=== PATIENT | male | born 1945 | race Caucasian/White ===

== ENCOUNTER 2024-03-18 17:12 | Observation (INO) | payer OTHER ==
[2024-03-18 17:33] LABS: Absolute Basophils 0.1 K/uL (0-0.5); Absolute Eosinophils 0.1 K/uL (0-0.5); Absolute Lymphocytes (CBC) 1.1 K/uL (0.7-4.9); Absolute Monocytes 1.2 K/uL (0.1-1.3); Absolute Neutrophil 7.5 K/uL (1.8-8.0); Basophils % 0.5 % (0-1.3); Eosinophils % 0.8 % (0-4.4); Hematocrit 34.3 % (39.6-49.0); Hemoglobin 11.8 g/dL (13.6-17.9); MCH 32.2 pg (27.0-35.0); MCHC 34.5 g/dL (32.0-36.0); MCV 93.2 fL (80-100); MPV 8.2 fL (7.6-11.3); Neutrophils % 75.7 % (41.7-73.7); Nucleated Red Blood Cells % 0.1 % (0-0); Platelets 228 thou/uL (152-406); RBC Red Blood Cell Count 3.68 M/uL (4.33-5.43); Red Cell Distribution Width 14.8 % (12.1-15.2)
[2024-03-18 17:54] LABS: Anion Gap 8.8 mEq/L (5.0-15.0); Magnesium 1.5 mg/dL (1.6-2.4); Potassium 3.8 mEq/L (3.5-5.1); Troponin High Sensitivity 5.3 pg/mL (<58.9)
--- NOTE | 2024-03-18 19:15 | EDPHYS ---
Physician Documentation [facility] Name: Clarence Albright Age: 78 yrs Sex: Male : 1945 Arrival Date: 03/18/2024 Time: 17:12 Bed 3 Private MD: ED Physician Willie Street HPI: 03/18 19:15 This 78 yrs old Male presents to ER via EMS with complaints of Blood Pressure Problem. ms3 19:15 78-year-old male with past medical history of diabetes, hypertension, hypothyroidism, ms3 hypercholesterolemia, congestive heart failure presents to the emergency department for generalized weakness. EMS was called to restaurant where patient was unable to stand. EMS obtained patient's blood pressure and found it to be 70/40. EMS notes patient was slow to respond and had retrograde amnesia at that time. 650 mL of normal saline was administered with improvement of patient's blood pressure. Patient is without complaints on arrival to the emergency department. Historical: - Allergies: 17:23 Acyclovir; ld1 - PMHx: 17:23 Diabetes mellitus; Hypertensive disorder; Hypothyroidism; ld1 17:24 Hypercholesterolemia; CHF; ld1 - PSHx: 17:23 Cardiac stent; ld1 - Immunization history:: Adult Immunizations up to date. - Infectious Disease History:: Denies. - Social history:: Smoking status: Patient denies any tobacco usage or history of. ROS: 19:15 Constitutional: Negative for fever, and chills. ms3 19:15 Cardiovascular: Negative for chest pain, and palpitations. Respiratory: Negative for shortness of breath, cough, wheezing, and pleuritic chest pain, Abdomen/GI: Negative for abdominal pain, nausea, vomiting, diarrhea, and constipation, 19:15 Neck: Positive for Neck pain, Exam: 19:04 ECG was reviewed by the Attending Physician. ms3 19:15 Constitutional: This is a well developed, well nourished patient who is awake, alert, ms3 and in no acute distress. Chest/axilla: Normal chest wall appearance and motion. Nontender with no deformity. Cardiovascular: Regular rate and rhythm with a normal S1 and S2. No gallops, murmurs, or rubs. Normal PMI, no JVD. No pulse deficits. Respiratory: Lungs have equal breath sounds bilaterally, clear to auscultation and percussion. No rales, rhonchi or wheezes noted. No increased work of breathing, no retractions or nasal flaring. Abdomen/GI: Soft, non-tender, with normal bowel sounds. No distension or tympany. No guarding or rebound. No evidence of tenderness throughout. Skin: Warm, dry with normal turgor. Normal color with no rashes, no lesions, and no evidence of cellulitis. Vital Signs: 17:16 BP 117 / 65; Pulse 70; Resp 18; Pulse Ox 100% on R/A; Weight 81.19 kg; ld1 17:20 BP 117 / 65; Pulse 70; Resp 28; Pulse Ox 100% on R/A; ld1 18:29 BP 132 / 72; Pulse 71; Resp 16; Pulse Ox 100% on R/A; ld1 18:56 BP 142 / 90; Pulse 73; Resp 12; Pulse Ox 100% on R/A; ld1 19:13 BP 131 / 77; Pulse 80; Resp 17; Pulse Ox 98% on R/A; kd3 20:27 BP 131 / 65; Pulse 82; Resp 17; Pulse Ox 95% ; vc1 MDM: 17:23 Patient medically screened. ms3 19:15 Differential Diagnosis Arrhythmia versus electrolyte abnormality versus orthostatic ms3 hypotension. Data reviewed: vital signs, nurses notes, lab test result(s), radiologic studies, and as a result, I will discharge patient. Consideration of Admission/Observation Patient was admitted/placed on observation. Management of patient was discussed with the following: Hospitalist: Dr. Shoemaker. Independent interpretation of the following test(s) in the Emergency Department X-Ray: My interpretation is Chest x-ray image reviewed by me shows cardiomegaly. satellite project site monitor: rate is 77 beats/min, Rhythm is normal sinus rhythm, regular, with no ectopy, Interpretation: normal rate, normal rhythm. Historians other than the Patient: EMS: [facility]. Counseling: I had a detailed discussion with the patient and/or guardian regarding the historical points, exam findings, and any diagnostic results supporting the discharge/admit diagnosis, lab results, radiology results, the need for further work-up and treatment in the hospital. ED course: Discussed necessity for admission with patient and his family. They understand and agree with plan. Patient has remained normotensive in the emergency department. However, unexplained low blood pressure without an increase in heart rate according to EMS. Will place patient in observation. 03/18 17:22 Order name: Basic Metabolic Panel; Complete Time: 17:57 ms3 03/18 17:22 Order name: CBC with Diff; Complete Time: 17:57 ms3 03/18 17:22 Order name: Magnesium; Complete Time: 17:57 ms3 03/18 17:22 Order name: NT PRO-BNP; Complete Time: 17:57 ms3 03/18 17:22 Order name: Troponin HS; Complete Time: 17:57 ms3 03/18 20:40 Order name: Urinalysis w/ reflexes EDMS 03/18 20:40 Order name: CBC with Automated Diff EDMS 03/18 20:40 Order name: CBC with Automated Diff EDMS 03/18 20:40 Order name: Comprehensive Metabolic Panel EDMS 03/18 20:40 Order name: Comprehensive Metabolic Panel EDMS 03/18 17:22 Order name: XRAY Chest (1 view); Complete Time: 19:57 ms3 03/18 17:22 Order name: EKG; Complete Time: 17:23 ms3 03/18 20:40 Order name: Physical Therapy Consult EDAR 03/18 17:22 Order name: Cardiac monitoring; Complete Time: 17:23 ms3 03/18 17:22 Order name: EKG - Nurse/Tech; Complete Time: 17:45 ms3 03/18 17:22 Order name: IV Saline Lock; Complete Time: 17:23 ms3 03/18 17:22 Order name: Labs collected and sent; Complete Time: 17:23 ms3 03/18 17:22 Order name: O2 Per Protocol; Complete Time: 17:23 ms3 03/18 17:22 Order name: O2 Sat Monitoring; Complete Time: 17:23 ms3 EC:04 Rate is 71 beats/min. Rhythm is regular. QRS [place] is Normal. [place] interval is prolonged. ms3 QRS interval is normal. Clinical impression: Normal ECG and with 1st degree AV block. Interpreted by me. Reviewed by me. Administered Medications: No medications were administered Disposition Summary: 03/18/24 19:14 Hospitalization Ordered Notes: Hospitalization Status: Observation ms3 Provider: Nito Shoemaker ms3 Location: Telemetry/MedSurg (observation) ms3 Condition: Stable ms3 Problem: new ms3 Symptoms: are resolved ms3 Bed/Room Type: Standard ms3 Room Assignment: 228(03/18/24 21:04) [facility] Diagnosis - Hypotension, unspecified ms3 - Weakness ms3 Forms: - Medication Reconciliation Form ms3 - SBAR form ms3 - Leadership Thank You Letter ms3 Signatures: Dispatcher [employer] Mart Alston RN RN jb4 Willie Street DO DO ms3 Stacey Street RN RN ld1 Maty Kam [facility] Corrections: (The following items were deleted from the chart) 20:46 19:14 ms3 jb4 21:04 20:46 [facility]
--- NOTE | 2024-03-18 19:15 | ER ---
Nurse's Notes [facility] Name: Clarence Albright Age: 78 yrs Sex: Male : 1945 Arrival Date: 03/18/2024 Time: 17:12 Bed 3 Private MD: Diagnosis: Hypotension, unspecified;Weakness Presentation: 03/18 17:20 Chief complaint: EMS states: toned out to [facility] for pt who was stumbling, weak, ld1 lethargic. Pt received anti inflammatory shot today at [facility]. EMS reports low BP upon arrival to restaurant of 70/40. Coronavirus screen: At this time, the client does not indicate any symptoms associated with coronavirus-19. Ebola Screen: No symptoms or risks identified at this time. Initial Sepsis Screen: Does the patient meet any 2 criteria? No. Patient's initial sepsis screen is negative. Does the patient have a suspected source of infection? No. Patient's initial sepsis screen is negative. Risk Assessment: Do you want to hurt yourself or someone else? Patient reports no desire to harm self or others. 17:20 Method Of Arrival: EMS: [facility] ld1 17:20 Acuity: PRESLEY 2 ld1 17:21 Onset of symptoms was March 18, 2024. ld1 17:23 Care prior to arrival: Medication(s) given: Normal saline infusion, 500 mL. ld1 Triage Assessment: 17:21 General: Appears in no apparent distress. comfortable, Behavior is calm, cooperative, ld1 appropriate for age. 17:22 Pain: Denies pain. EENT: No signs and/or symptoms were reported regarding the EENT ld1 system. Neuro: Level of Consciousness is awake, alert, obeys commands, Oriented to person, place, time, situation. Cardiovascular: Capillary refill < 3 seconds Patient's skin is warm and dry. Rhythm is sinus rhythm. Respiratory: Airway is patent Respiratory effort is even, unlabored. GI: Abdomen is round non-distended. : No signs and/or symptoms were reported regarding the genitourinary system. Derm: No signs and/or symptoms reported regarding the dermatologic system. Musculoskeletal: No signs and/or symptoms reported regarding the musculoskeletal system. Historical: - Allergies: 17:23 Acyclovir; ld1 - PMHx: 17:23 Diabetes mellitus; Hypertensive disorder; Hypothyroidism; ld1 17:24 Hypercholesterolemia; CHF; ld1 - PSHx: 17:23 Cardiac stent; ld1 - Immunization history:: Adult Immunizations up to date. - Infectious Disease History:: Denies. - Social history:: Smoking status: Patient denies any tobacco usage or history of. Screenin:14 [facility] ED Fall Risk Assessment (Adult) History of falling in the last 3 months, kd3 including since admission No falls in past 3 months (0 pts) Confusion or Disorientation No (0 pts) Intoxicated or Sedated No (0 pts) Impaired Gait No (0 pts) Mobility Assist Device Used No (0 pt) Altered Elimination No (0 pt) Score/Fall Risk Level 0 - 2 = Low Risk Oriented to surroundings. Abuse screen: Denies threats or abuse. Denies injuries from another. Nutritional screening: No deficits noted. Tuberculosis screening: No symptoms or risk factors identified. Assessment: 17:24 Reassessment: See triage assessment. ld1 18:29 Reassessment: Patient appears in no apparent distress at this time. No changes from ld1 previously documented assessment. Patient and/or family updated on plan of care and expected duration. Pain level reassessed. Patient is alert, oriented x 3, equal unlabored respirations, skin warm/dry/pink. 19:11 General: Pt called this Rn into the room to request a urinal. Pt also requested an kd3 update. Provider is at the bedside to update the patient and family. No further requests at this time. . 19:14 General: Appears in no apparent distress. Behavior is calm, cooperative. Neuro: Level kd3 of Consciousness is awake, alert, obeys commands, Oriented to person, place, time, situation. Cardiovascular: Patient's skin is warm and dry. Respiratory: Airway is patent Trachea midline Respiratory effort is even, unlabored, Respiratory pattern is regular, symmetrical. 20:27 Reassessment: Patient appears in no apparent distress at this time. No changes from vc1 previously documented assessment. Patient and/or family updated on plan of care and expected duration. Pain level reassessed. Patient is alert, oriented x 3, equal unlabored respirations, skin warm/dry/pink. Vital Signs: 17:16 BP 117 / 65; Pulse 70; Resp 18; Pulse Ox 100% on R/A; Weight 81.19 kg; ld1 17:20 BP 117 / 65; Pulse 70; Resp 28; Pulse Ox 100% on R/A; ld1 18:29 BP 132 / 72; Pulse 71; Resp 16; Pulse Ox 100% on R/A; ld1 18:56 BP 142 / 90; Pulse 73; Resp 12; Pulse Ox 100% on R/A; ld1 19:13 BP 131 / 77; Pulse 80; Resp 17; Pulse Ox 98% on R/A; kd3 20:27 BP 131 / 65; Pulse 82; Resp 17; Pulse Ox 95% ; vc1 ED Course: 17:16 Patient arrived in ED. ko1 17:16 Maintain EMS IV. Dressing intact. Good blood return noted. Site clean \T\ dry. Gauge \T\ ld 1 site: 20G RAC. 17:[address] DO is Attending Physician. ms3 17:[address], RN is Primary Nurse. ld1 17:21 Triage completed. ld1 17:22 Arm band placed on right wrist. ld1 18:22 XRAY Chest (1 view) In Process Unspecified. EDMS 19:14 Nito Shoemaker MD is Hospitalizing Provider. ms3 19:14 Patient has correct armband on for positive identification. Provided Education on: ED kd3 policy and procedures. . Administered Medications: No medications were administered Medication: 19:14 VIS not applicable for this client. kd3 Outcome: 19:14 Decision to Hospitalize by Provider. ms3 22:12 Patient left the ED. kd3 Signatures: Dispatcher [employer] EDMS Willie Street DO DO ms3 Stacey Street, LAWRENCE RN ld1 Aury Doty RN RN kd3 Lindsay Wayne RN RN vc1 Kathi Grigsby, LAWRENCE BRAVO ko1 Corrections: (The following items were deleted from the chart) 17:22 17:20 Chief complaint: EMS states: toned out to [employer] for pt who was stumbling, ld1 weak, lethargic. Pt received anti inflammatory shot today at [facility]. ld1 17:22 17:20 Chief complaint: EMS states: toned out to [employer] [place] [employer] for pt who was stumbling, ld1 weak, lethargic. Pt received anti inflammatory shot today at [facility]. EMS reports low BP upon arrival to restaurant ld1
--- NOTE | 2024-03-18 19:33 | RAD REPORT ---
EXAM DESCRIPTION: Grace Single View03/18/2024 6:20 pm CLINICAL HISTORY: hypotension, Left shoulder pain COMPARISON: No comparisons TECHNIQUE: Portable AP view of the chest. FINDINGS: Blunting of the left costophrenic angle, may suggest pleural thickening or small effusion. No pneumothorax. The cardiomediastinal contours are unremarkable. IMPRESSION: Blunting of the left costophrenic angle, may suggest pleural thickening or small effusio n.
--- NOTE | 2024-03-18 20:33 | P.HP ---
Certification for Inpatient Patient admitted to: Observation With expected LOS: <2 Midnights Practitioner: I am a practitioner with admitting privileges, knowledge of patient current condition, hospital course, and medical plan of care. Services: Services provided to patient in accordance with Admission requirements found in Title 42 Section 412.3 of the Code of Federal Regulations Patient History Date of Service: 03/18/24 Reason for admission: Dizziness and generalized weakness History of Present Illness: 78-year-old male with past medical history of diabetes, hypertension, hypothyroidism, hyperlipidemia, CAD status post cardiac stents, having neck pain and spasm and had an antiinflammatory shot and was prescribed medication tizanidine for muscle spasm at [facility] started having generalized weakness lethargy, stumbling. He went to dinner at a restaurant when he was had a presyncopal episode and EMS was called. Upon EMS arrival patient noted to have a blood pressure of 70/40 and was brought to ER. Patient denies any chest pain or shortness of breath. No nausea vomiting or diarrhea. No fever or chills. Denies any palpitation. Patient was assessed in the ER and was admitted for further management . Allergies No Known Allergies Allergy (Unverified 03/18/24 22:09) - Past Medical/Surgical History Past Medical History: Reviewed- Non-Contributory -: Hypertension, diabetes, CAD, hyperlipidemia, Past Surgical History: Reviewed- Non-Contributory -: Stents - Family History Family History: Reviewed- Non-Contributory - Social History Smoking Status: Never smoker Review of Systems 10-point ROS is otherwise unremarkable Physical Examination - Vital Signs Temperature: 97.8 F Blood Pressure: 108/48 Pulse: 78 Respirations: 18 Pulse Ox (%): 94 - Physical Exam General: Alert, In no apparent distress, Oriented x3 HEENT: Atraumatic, Normocephalic Neck: Supple, 2+ carotid pulse no bruit Respiratory: Clear to auscultation bilaterally, Normal air movement Cardiovascular: No edema, Normal pulses, Regular rate/rhythm, Normal S1 S2 Capillary refill: <2 Seconds Gastrointestinal: Soft and benign, Non-distended, W/out hepatosplenomegaly Musculoskeletal: No clubbing, No swelling Integumentary: No rashes, No breakdown Neurological: Normal speech, Normal strength at 5/5 x4 extr, Cranial nerves 3-12 intact, Normal reflexes 2+ Lymphatics: No axilla or inguinal lymphadenopathy - Studies Laboratory Data (last 24 hrs) 03/18/24 03/18/24 17:26 17:26 WBC 9.90 Hgb 11.8 L Hct 34.3 L Plt Count 228 Sodium 135 L Potassium 3.8 BUN 19 H Creatinine 1.16 Glucose 164 H Magnesium 1.5 L Assessment and Plan - Problems (Diagnosis) (1) Pre-syncope Current Visit: Yes Status: Acute Plan: Pre syncope Hypotension Resolved Possibly induced by medications Will hold tizanidine Gentle hydration Hyponatremia Acute renal insufficiency Dehydration Started on IV hydration Monitor renal Electrolytes monitor and replace accordingly Hypomagnesemia Replace Diabetes Insulin sliding scale Accu-Chek before every meal and at bedtime hyperlipidemia Continue statin Anemia of chronic disease Monitor H&H closely History of CAD status post stents Monitor closely on telemetry GI/DVT prophylaxis Advanced directive full code Discharge Plan: Home Plan to discharge in: 24 Hours - Advance Directives Does patient have a Living Will: No Does patient have a Durable POA for Healthcare: No - Code Status/Comfort Care Code Status: Full Code Time Spent Managing Pts Care (In Minutes): 48
[2024-03-18] MEDS ORDERED: ACETAMINOPHEN 325 MG TABLET PO PRN (20:34)
[2024-03-18] MEDS ORDERED: ONDANSETRON 4 MG/2 ML VIAL IV PRN (20:34)
[2024-03-18 22:10] VITALS: BMI 23.4
[2024-03-19 04:13] LABS: Absolute Basophils 0.1 K/uL (0-0.5); Absolute Eosinophils 0.1 K/uL (0-0.5); Absolute Lymphocytes (CBC) 1.6 K/uL (0.7-4.9); Absolute Monocytes 1.1 K/uL (0.1-1.3); Absolute Neutrophil 6.5 K/uL (1.8-8.0); Basophils % 0.6 % (0-1.3); Eosinophils % 1.4 % (0-4.4); Hematocrit 35.4 % (39.6-49.0); Hemoglobin 12.4 g/dL (13.6-17.9); Lymphocytes % 17.4 % (15.3-44.8); MCH 32.4 pg (27.0-35.0); MCHC 34.9 g/dL (32.0-36.0); MCV 92.6 fL (80-100); MPV 8.2 fL (7.6-11.3); Monocytes % 11.6 % (3.3-12.3); Nucleated Red Blood Cells % 0.1 % (0-0); Platelets 217 thou/uL (152-406); RBC Red Blood Cell Count 3.82 M/uL (4.33-5.43); Red Cell Distribution Width 14.8 % (12.1-15.2)
[2024-03-19 04:27] LABS: ALT/SGPT 17 U/L (16-61); Albumin 2.7 g/dL (3.4-5.0); Albumin/Globulin Ratio 0.8 (1.1-1.8); Alkaline Phosphatase 90 U/L (45-117); Anion Gap 6.4 mEq/L (5.0-15.0); BUN Blood Urea Nitrogen 18 mg/dL (7-18); Bicarbonate 29 mEq/L (21-32); Bilirubin Total 0.5 mg/dL (0.2-1.0); Globulin 3.2 g/dL (2.3-3.5); Glomerular Filtration Rate 66 ml/min (=/>90); Glucose Level 137 mg/dL (74-106); Potassium 3.4 mEq/L (3.5-5.1); Protein, Total 5.9 g/dL (6.4-8.2); Sodium Level 135 mEq/L (136-145)
[2024-03-19 04:36] LABS: AST/SGOT < 10 U/L (15-37)
[2024-03-19] MEDS: NA CHLORIDE 0.9% 1,000 ML IV SCH (04:49)
[2024-03-19] MEDS: POTASSIUM CL SA 10 MEQ TAB PO ONE (08:04)
--- NOTE | 2024-03-19 10:57 | P.DS ---
Admission Date: 03/18/24 Discharge Date: 03/19/24 Disposition: ROUTINE DISCHARGE Discharge Condition: FAIR Reason for Admission: Dizziness and generalized weakness - Problems (1) Transient hypotension Status: Acute (2) History of hypertension Status: Acute (3) Pre-syncope Status: Acute (4) Hyponatremia Status: Acute (5) Hypokalemia Status: Acute Hospital Course: 78-year-old male with past medical history of diabetes, hypertension, hypothyroidism, hyperlipidemia, CAD status post cardiac stents, having neck pain and spasm and had an intra-articular injection for pain and was prescribed medication tizanidine for muscle spasm at [facility]. Patient reported generalized weakness lethargy, stumbling and low blood pressure after he took the Tizanidine. He went to dinner at a restaurant where he he almost passed out. EMS was called who noted a blood pressure of 70/40 and was brought to ER. Patient denied any chest pain or shortness of breath. No prior nausea vomiting or diarrhea. No fever or chills. Patient was admitted and hydrated with IV normal saline. His blood pressure was stable during the hospital stay and was asymptomatic. He was ambulatory with no issues. Patient's symptoms likely related to tizanidine and he has been asked to stop taking the drug. Patient is deemed stable for discharge. He is informed to follow-up with cardiology for an echocardiogram to assess his EF and valvular function. Vital Signs/Physical Exam: Temp Pulse Resp BP Pulse Ox 97.9 F 84 15 127/61 99 03/19/24 08:00 03/19/24 08:00 03/19/24 08:00 03/19/24 08:00 03/19/24 08:00 General: Alert, In no apparent distress, Oriented x3 HEENT: Mucous membr. moist/pink Neck: Supple, JVD not distended Respiratory: Clear to auscultation bilaterally, Normal air movement Cardiovascular: No edema, Regular rate/rhythm, Normal S1 S2, No murmurs Gastrointestinal: Normal bowel sounds, Soft and benign, Non-distended, No masses Musculoskeletal: No swelling, No tenderness Integumentary: No rashes Neurological: Normal strength at 5/5 x4 extr Laboratory Data at Discharge: WBC 9.40 thou/uL (4.3-10.9) 03/19/24 03:46 Hgb 12.4 g/dL (13.6-17.9) L 03/19/24 03:46 Hct 35.4 % (39.6-49.0) L 03/19/24 03:46 Plt Count 217 thou/uL (152-406) 03/19/24 03:46 Sodium 135 mEq/L (136-145) L 03/19/24 03:46 Potassium 3.4 mEq/L (3.5-5.1) L 03/19/24 03:46 BUN 18 mg/dL (7-18) 03/19/24 03:46 Creatinine 1.13 mg/dL (0.70-1.30) 03/19/24 03:46 Glucose 137 mg/dL (74-106) H 03/19/24 03:46 Magnesium 1.5 mg/dL (1.6-2.4) L 03/18/24 17:26 Total Bilirubin 0.5 mg/dL (0.2-1.0) 03/19/24 03:46 AST < 10 U/L (15-37) L 03/19/24 03:46 ALT 17 U/L (16-61) 03/19/24 03:46 Alkaline Phosphatase 90 U/L (45-117) 03/19/24 03:46 Home Medications: Amlodipine [Norvasc*] 5 mg PO DAILY 03/18/24 Aspirin [Aspirin EC 81 MG] 81 mg PO DAILY 03/18/24 Atorvastatin Calcium [Lipitor] 40 mg PO DAILY 03/18/24 Carvedilol [Coreg] 12.5 mg PO BID 03/18/24 Cyanocobalamin (Vitamin B-12) [Vitamin B-12] 1,000 mcg PO DAILY 03/18/24 D-Mannose 1 gm PO BID 03/18/24 Duloxetine HCl [Cymbalta] 30 mg PO DAILY 03/18/24 Ferrous Sulfate [Ferrous Sulfate*] 325 mg PO DAILY 03/18/24 Furosemide [Lasix] 10 mg PO DIRECTED 03/18/24 Levothyroxine Sodium [Unithroid] 25 mcg PO DIRECTED 03/18/24 Metformin HCl [Glucophage*] 500 mg PO BID 03/18/24 Methenamine Hippurate [Hiprex] 1 gm PO BID 03/18/24 Olmesartan/Hydrochlorothiazide [Olmesartan-Hctz 40-12.5 mg Tab] 20 mg PO BID 03/18/24 Pantoprazole [Protonix Tab*] 40 mg PO DAILY 03/18/24 Rivastigmine Patch [Exelon 4.6 mg Patch*] 4.6 mg TOP DAILY 03/18/24 Ubidecarenone [Co Q-10] 200 mg PO DAILY 03/18/24 Physician Discharge Instructions: 78-year-old male with past medical history of diabetes, hypertension, hypothyroidism, hyperlipidemia, CAD status post cardiac stents, having neck pain and spasm and had an intra-articular injection for pain and was prescribed medication tizanidine for muscle spasm at [facility]. Patient reported generalized weakness lethargy, stumbling and low blood pressure after he took the Tizanidine. He went to dinner at a restaurant where he he almost passed out. EMS was called who noted a blood pressure of 70/40 and was brought to ER. Patient denied any chest pain or shortness of breath. No prior nausea vomiting or diarrhea. No fever or chills. Patient was admitted and hydrated with IV normal saline. His blood pressure was stable during the hospital stay and was asymptomatic. He was ambulatory with no issues. Patient's symptoms likely related to tizanidine and he has been asked to stop taking the drug. Patient is deemed stable for discharge. He is informed to follow-up with cardiology for an echocardiogram to assess his EF and valvular function. Diet: AHA Activity: Fall precautions Followup: NONE,NONE [Primary Care Provider] - Time spent managing pt's care (in minutes): 26
[2024-03-19 11:11] VITALS: O2SAT 99
[2024-03-19 12:22] VITALS: BP 149/75; TEMP 98.5
--- NOTE | 2024-03-23 15:11 | EKG ---
Test Date: 2024-03-18 Test Time: 17:41:21 Contract Design Agent: Jeanine SI MEASUREMENT RESULTS: Intervals: Rate: 71 VA: 274 QRSD: 66 QT: 392 QTc: 425 [place]: P: 46 VA: 274 QRS: -9 T: -6 INTERPRETIVE STATEMENTS: Sinus rhythm with 1st degree AV block Low voltage QRS Borderline ECG No previous ECG available for comparison Electronically Signed On 03-23-24 14:56:57 CDT by Bertin Correia
== END 2024-03-19 12:16 | disposition home or self-care (01) ==
LOC: ER 17:12 → ERHOLD 20:34 → 2ND 21:07
PROVIDERS: ADMIT Family Medicine; ATTEND Internal Medicine
DX: I95.9 Hypotension, unspecified (principal); R42 Dizziness and giddiness; R53.1 Weakness; E83.42 Hypomagnesemia; E86.0 Dehydration; E87.1 Hypo-osmolality and hyponatremia; I10 Essential (primary) hypertension; E11.9 Type 2 diabetes mellitus without complications; E03.9 Hypothyroidism, unspecified; E78.5 Hyperlipidemia, unspecified; I25.10 Atherosclerotic heart disease of native coronary artery without angina pectoris; N28.9 Disorder of kidney and ureter, unspecified; D63.8 Anemia in other chronic diseases classified elsewhere; Z95.5 Presence of coronary angioplasty implant and graft
CPT/HCPCS: 93005; 85025 ×2; 80048; 36415; 83735; 84484; 80053; 83880; 71045; 97112; 97116; 97161; 99283; J7030; G0378 ×3